=== PATIENT | female | born 1960 | race African-American/Black ===

== ENCOUNTER 2022-09-28 07:34 | Emergency (ER) | payer OTHER ==
[~2022-09-28] VITALS: Ht 165.1 cm; Wt 79.0 kg
[~2022-09-28 07:34] MED LIST: ALLEGRA D; AMBIEN; COMBIVENT; DEXILANT; SINGULAIR
[2022-09-28] MEDS ORDERED: SODIUM CHLORIDE 0.9% 1,000 ML IV ONE (08:15)
[2022-09-28 08:32] LABS: CHLORIDE 107 mEq/L (98-107)
[2022-09-28 08:35] LABS: PROTHROMBIN TIME 10.7 sec (9.6-11.0)
[2022-09-28 08:49] LABS: HEMOGLOBIN. 12.5 g/dL (12.0-16.0); MEAN CORPUSCULAR HEMOGLOBIN 32.3 pg (28.0-32.0); MEAN CORPUSCULAR VOLUME 97.8 fL (81.0-99.0); MEAN PLATELET VOLUME 9.1 fl (7.4-10.4); PLATELET 191 x1000/uL (130-400); RED BLOOD CELL COUNT 3.88 mill/uL (4.2-5.4)
[2022-09-28 09:26] LABS: PLATELET ESTIMATE NORMAL
[2022-09-28 12:03] LABS: CLARITY URINE CLEAR (CLEAR); COLOR URINE YELLOW (YELLOW); KETONES URINE 1+ (NEGATIVE); LEUKOCYTE ESTERASE URINE NEGATIVE (NEGATIVE); NITRITE URINE NEGATIVE (NEGATIVE); OCCULT BLOOD URINE 1+ (NEGATIVE); PH URINE 6.5 (4.5-8.0); PROTEIN URINE NEGATIVE (NEGATIVE); SPECIFIC GRAVITY URINE 1.008 (1.005-1.030); UROBILINOGEN URINE 0.2 E.U./dL (0.2-1.0)
[2022-09-28 12:27] VITALS: BP 134/66
== END 2022-09-28 12:29 | disposition home or self-care (01) ==
LOC: ER 07:34
DX: R55 Syncope and collapse (principal); R94.31 Abnormal electrocardiogram [ECG] [EKG]; E78.00 Pure hypercholesterolemia, unspecified; G43.909 Migraine, unspecified, not intractable, without status migrainosus; Z88.6 Allergy status to analgesic agent; Z91.013 Allergy to seafood
CPT/HCPCS: 36415; 71045; 80053; 81003; 83605; 84145; 84484; 85025; 85610; 87040; 87086; 93005; 96360; 96361; 99285; J7030; Z7610

== ENCOUNTER 2025-04-08 10:40 | Inpatient (IN) | payer OTHER ==
[~2025-04-08] VITALS: Ht 165.1 cm; Wt 83.9 kg
[2025-04-08 11:05] VITALS: O2SAT 99
[2025-04-08] MEDS: OXYCODONE HCL/ACETAMINOPHEN 5/325MG TABLET PO ONE (11:20)
[2025-04-08 11:57] LABS: HEMATOCRIT. 37.5 % (36.0-48.0); HEMOGLOBIN. 12.2 g/dL (12.0-16.0); MEAN PLATELET VOLUME 8.4 fl (7.4-10.4); PLATELET 320 x1000/uL (130-400); RED BLOOD CELL COUNT 3.89 mill/uL (4.2-5.4); RED CELL DISTRIBUTION WIDTH 13.8 % (11.6-14.6)
[2025-04-08 12:15] LABS: CREATININE 1.0 mg/dL (0.6-1.0); UREA NITROGEN BLOOD 16 mg/dL (9-23)
[2025-04-08 12:16] LABS: ASPARTATE AMINOTRANSFERASE 34 IU/L (<34)
[2025-04-08 12:17] LABS: BILIRUBIN DIRECT 0.3 mg/dL (<=3.0); BILIRUBIN TOTAL 0.7 mg/dL (0.1-1.0); PROTEIN TOTAL 7.2 g/dL (6.0-8.3)
[2025-04-08 12:43] LABS: TROPONIN I HIGH SENSITIVITY 163 ng/L (3.0-34)
[2025-04-08] MEDS: SODIUM CHLORIDE 0.9% 1,000 ML IV ONE (14:27)
[2025-04-08] MEDS: DIPHENHYDRAMINE 12.5MG/5ML UDC PO NR (14:28)
[2025-04-08] MEDS: ASPIRIN 325MG EC TABLET PO SCH (14:41)
[2025-04-08] MEDS ORDERED: DEXTROSE 50% WATER 50ML SYRINGE IV PRN (16:00)
[2025-04-08] MEDS ORDERED: GUAIFENESIN 200MG/10ML SUGAR FREE UDC PO PRN (16:00)
[2025-04-08] MEDS ORDERED: ACETAMINOPHEN 325MG TABLET PO PRN (16:00)
[2025-04-08] MEDS ORDERED: ONDANSETRON HCL 4MG/2ML INJ IV PRN (16:00)
[2025-04-08] MEDS ORDERED: DOCUSATE SODIUM 100MG CAPSULE PO PRN (16:00)
[2025-04-08] MEDS ORDERED: MAGNESIUM/ALUMINUM HYDROXIDE/SIMETHICONE 30ML UDC PO PRN (16:00)
[2025-04-08] MEDS ORDERED: IPRATROPIUM/ALBUTEROL 0.5-3(2.5)MG/3ML NEB HHN PRN (16:00)
[2025-04-08] MEDS: PANTOPRAZOLE SODIUM 40 MG/VIAL IV SCH (16:35)
[2025-04-08] MEDS: LACTATED RINGERS 1,000 ML IV SCH (16:35)
[2025-04-08] MEDS: ACETAMINOPHEN 325MG TABLET PO PRN (16:35)
[2025-04-08] MEDS: BLOOD SUGAR DIAGNOSTIC STRIP TEST SCH (17:11)
[2025-04-08 17:28] LABS: PHOSPHORUS 2.4 mg/dL (2.5-4.9)
[2025-04-08] MEDS: INSULIN LISPRO 100 UNITS/ML SUBCUT SCH (18:10)
[2025-04-08 19:30] VITALS: BP 151/85; PULSE 90; RESP 20; TEMP 36.696
[2025-04-08 20:00] VITALS: BP 163/84; PULSE 95; RESP 20; TEMP 36.4; O2SAT 98
[2025-04-08 20:08] LABS: LYMPHOCYTES % MANUAL 5.0 % (20.0-60.0); MONOCYTES % MANUAL 4.0 % (2.0-8.0); NEUTROPHILS % MANUAL 91.0 % (45.0-75.0); PLATELET ESTIMATE NORMAL
[2025-04-08] MEDS ORDERED: ATORVASTATIN CALCIUM 40MG TABLET PO SCH (21:00)
[2025-04-08] MEDS: ZOLPIDEM TARTRATE 5MG TABLET PO SCH (21:30)
[2025-04-08] MEDS: ENOXAPARIN 30MG/0.3ML SYR SUBCUT SCH (21:32)
[2025-04-09] VITALS: BP 142/78; PULSE 90; RESP 20; TEMP 36.1; O2SAT 98
[2025-04-09] MEDS: CEFTRIAXONE 1GM/50ML 50 ML IV SCH (00:57)
[2025-04-09] MEDS: VANCOMYCIN 1.5GM/250ML IV NR (01:35)
[2025-04-09] MEDS: POTASSIUM PHOSPHATE 15 MMOL in DEXT 5% WATER 245 ML IV NR (01:35)
[2025-04-09 04:00] VITALS: BP 152/68; PULSE 92; RESP 20; TEMP 36.7; O2SAT 98
[2025-04-09 06:45] LABS: BASOPHILS % 0.4 % (0.0-2.0); EOSINOPHILS % 1.6 % (0.0-5.0); HEMATOCRIT. 35.8 % (36.0-48.0); HEMOGLOBIN. 12.0 g/dL (12.0-16.0); LYMPHOCYTES % 18.0 % (20.0-50.0); MEAN PLATELET VOLUME 8.3 fl (7.4-10.4); MONOCYTES % 7.8 % (2.0-8.0); NEUTROPHILS % 72.2 % (40.0-76.0); PLATELET 259 x1000/uL (130-400); RED BLOOD CELL COUNT 3.71 mill/uL (4.2-5.4); RED CELL DISTRIBUTION WIDTH 13.5 % (11.6-14.6)
[2025-04-09 07:04] LABS: CREATININE 0.6 mg/dL (0.6-1.0); TRIGLYCERIDE 109 mg/dL (0-150)
[2025-04-09 07:05] LABS: LDL CHOLESTEROL 79 mg/dL (5-100); UREA NITROGEN BLOOD 9 mg/dL (9-23)
[2025-04-09 07:07] LABS: T4 FREE 1.48 ng/dL (0.89-1.76)
[2025-04-09 08:00] VITALS: BP 145/90; PULSE 97; RESP 18; TEMP 36.8; O2SAT 95
[2025-04-09 08:36] LABS: TROPONIN I HIGH SENSITIVITY 385 ng/L (3.0-34)
[2025-04-09 08:44] LABS: CLARITY URINE CLOUDY (CLEAR); COLOR URINE YELLOW (YELLOW); GLUCOSE URINE NEGATIVE (NEGATIVE); KETONES URINE NEGATIVE (NEGATIVE); LEUKOCYTE ESTERASE URINE NEGATIVE (NEGATIVE); NITRITE URINE NEGATIVE (NEGATIVE); OCCULT BLOOD URINE 2+ (NEGATIVE); PH URINE 5.0 (4.5-8.0); PROTEIN URINE 1+ (NEGATIVE); SPECIFIC GRAVITY URINE 1.016 (1.005-1.030); UROBILINOGEN URINE 0.2 E.U./dL (0.2-1.0)
[2025-04-09 09:15] LABS: COARSE GRANULAR CASTS URINE 0-5 /lpf; FINE GRANULAR CASTS URINE 0-5 /lpf
[2025-04-09 09:19] LABS: RBC URINE 0-2 /hpf (0-2); WBC URINE 0-2 /hpf (0-2)
[2025-04-09 09:22] LABS: BACTERIA URINE TRACE; MUCUS URINE 2+ /lpf (< = 2+); SQUAMOUS EPITHELIAL CELL URINE FEW /lpf (RARE/1+)
[2025-04-09] MEDS ORDERED: LIDOCAINE HCL 1% 20ML VIAL ONE (11:30)
[2025-04-09] MEDS ORDERED: MIDAZOLAM HCL 2 MG/2 ML VIAL ONE (11:30)
[2025-04-09] MEDS ORDERED: IODIXANOL 320 MG/ML 150ML BOTTLE IV ONE (11:30)
[2025-04-09] MEDS ORDERED: FENTANYL CITRATE/PF 50MCG/ML 2ML VIAL ONE (11:30)
[2025-04-09] MEDS ORDERED: HEPARIN 1000 UNITS/ML 10ML ONE (11:30)
[2025-04-09] MEDS ORDERED: VERAPAMIL HCL 2.5 MG/1 ML 2ML VIAL IV ONE (11:49)
[2025-04-09 12:00] VITALS: BP 151/81; PULSE 91; RESP 18; TEMP 36.7; O2SAT 95
[2025-04-09] MEDS ORDERED: ATROPINE SULFATE 1MG/10ML SYR IV PRN (13:00)
[2025-04-09 16:00] VITALS: BP 150/75; PULSE 91; RESP 18; TEMP 36.7; O2SAT 96
[2025-04-09] MEDS ORDERED: VANCOMYCIN 750MG/150ML (BAXTER) IV SCH (18:00)
[2025-04-09 20:00] VITALS: BP 152/88; PULSE 91; RESP 20; TEMP 37.1; O2SAT 97
[2025-04-09] MEDS: VANCOMYCIN 1.25GM/250ML 250 ML IV SCH (21:26)
[2025-04-09 22:31] LABS: TROPONIN I HIGH SENSITIVITY 220 ng/L (3.0-34)
[2025-04-10] VITALS: BP 136/68; PULSE 89; RESP 18; TEMP 36.6; O2SAT 98
[2025-04-10] MEDS: ACETAMINOPHEN 325MG TABLET PO PRN (03:13)
[2025-04-10 04:00] VITALS: BP 151/79; PULSE 79; RESP 18; TEMP 36.8; O2SAT 96
[2025-04-10 07:47] LABS: BASOPHILS % 0.2 % (0.0-2.0); EOSINOPHILS % 1.9 % (0.0-5.0); HEMATOCRIT. 34.1 % (36.0-48.0); HEMOGLOBIN. 11.4 g/dL (12.0-16.0); LYMPHOCYTES % 14.9 % (20.0-50.0); MEAN PLATELET VOLUME 8.7 fl (7.4-10.4); MONOCYTES % 8.8 % (2.0-8.0); NEUTROPHILS % 74.2 % (40.0-76.0); PLATELET 241 x1000/uL (130-400); RED BLOOD CELL COUNT 3.52 mill/uL (4.2-5.4); RED CELL DISTRIBUTION WIDTH 13.6 % (11.6-14.6)
[2025-04-10 08:00] VITALS: BP 150/80; PULSE 56; RESP 16; TEMP 36.7; O2SAT 98
[2025-04-10 08:00] LABS: UREA NITROGEN BLOOD 7 mg/dL (9-23)
[2025-04-10 08:51] LABS: CREATININE 0.4 mg/dL (0.6-1.0)
[2025-04-10] MEDS: POTASSIUM CHLORIDE 20MEQ TABLET SR PO NR (09:02)
[2025-04-10] MEDS: ENOXAPARIN 40MG/0.4ML SYR SUBCUT SCH (09:02)
[2025-04-10] MEDS: CLONIDINE 0.1MG TABLET PO PRN (10:44)
[2025-04-10 10:52] VITALS: BP 164/90; PULSE 85; RESP 16; TEMP 98
[2025-04-10] MEDS ORDERED: AMLO-905 MT (11:00)
[2025-04-10] MEDS ORDERED: ASPI-1160 MT (11:00)
[2025-04-10 14:16] LABS: TROPONIN I HIGH SENSITIVITY 133 ng/L (3.0-34)
== END 2025-04-10 11:50 | disposition home or self-care (01) | DRG 558 ==
LOC: ER 10:40 → 7WST 15:08 → EDBEDREQ 15:19 → ENRESERV 17:21
PROVIDERS: ADMIT Internal Medicine; ATTEND Internal Medicine
PROC: 4A023N7 Measurement of Cardiac Sampling and Pressure, Left Heart, Percutaneous Approach (ICD-10-PCS; principal; 2025-04-09)
PROC: B211YZZ Fluoroscopy of Multiple Coronary Arteries using Other Contrast (ICD-10-PCS; 2025-04-09)
PROC: B215YZZ Fluoroscopy of Left Heart using Other Contrast (ICD-10-PCS; 2025-04-09)
DX: M62.82 Rhabdomyolysis (principal); E83.39 Other disorders of phosphorus metabolism; E11.9 Type 2 diabetes mellitus without complications; D72.829 Elevated white blood cell count, unspecified; E78.00 Pure hypercholesterolemia, unspecified; G43.909 Migraine, unspecified, not intractable, without status migrainosus; R79.89 Other specified abnormal findings of blood chemistry; G47.00 Insomnia, unspecified; Z79.4 Long term (current) use of insulin; Z91.0120 Allergy to eggs, unspecified; Z91.81 History of falling; Z79.899 Other long term (current) drug therapy; Z91.018 Allergy to other foods; Z91.013 Allergy to seafood; Z79.82 Long term (current) use of aspirin
CPT/HCPCS: 36415; 72128; 80048; 80061; 80076; 80320; 81003; 82550; 82962; 83036; 83735; 83880; 84100; 84439; 84443; 84484; 85025; 93005; 93458; 96361; 96365; 99291; A4615; C1769; C1887; C1893; J0696; J1644; J1650; J2003; J2250; J2470; J3010; J3373; J3490; J7060; Q0163; Q9967; G0480